=== PATIENT | male | born 1980 | race Two or more races ===

== ENCOUNTER 2023-01-14 20:35 | Emergency (ER) | payer BC, OTHER ==
[~2023-01-14] VITALS: Ht 185.4 cm; Wt 81.6 kg
[2023-01-14] MEDS ORDERED: KETO10TA2 PO (21:05)
[2023-01-14] MEDS ORDERED: AMOX-430 PO (21:05)
[2023-01-14] MEDS ORDERED: OXYC-128 PO (21:05)
[2023-01-14] MEDS ORDERED: MORPHINE SULFATE INJ 4 MG/ML DISP.SYRIN ONE (21:28)
[2023-01-14] MEDS ORDERED: KETOROLAC TROMETHAMINE INJ 30 MG/ML VIAL ONE (21:28)
[2023-01-14] MEDS ORDERED: HYDR-4279 PO (21:28)
[2023-01-14] MEDS ORDERED: MORPHINE SULFATE INJ 2 MG/ML DISP.SYRIN ONE (21:28)
[2023-01-14] MEDS ORDERED: AMOX/CLAVULANATE 875 MG TABLET ONE (21:28)
[2023-01-14] MEDS ORDERED: KETOROLAC TROMETHAMINE INJ 60 MG/2 ML VIAL IM ONE (21:30)
[2023-01-14] MEDS ORDERED: MORPHINE SULFATE INJ 2 MG/ML DISP.SYRIN IM ONE (21:30)
[2023-01-14] MEDS ORDERED: AMOX/CLAVULANATE 875 MG TABLET PO ONE (21:30)
[2023-01-14 23:30] VITALS: BP 151/95
[2023-01-15] MEDS ORDERED: OXYC-128 PO (13:50)
[2023-01-15] MEDS ORDERED: AMOX-430 PO (13:50)
== END 2023-01-14 23:30 | disposition home or self-care (01) ==
LOC: ER 20:38
DX: L03.116 Cellulitis of left lower limb (principal)
CPT/HCPCS: 99284; 96372 ×2; J2270 ×2; J1885

== ENCOUNTER 2023-01-15 10:25 | Emergency (ER) | payer BC ==
[~2023-01-15] VITALS: Ht 185.4 cm; Wt 82.6 kg
[~2023-01-15 10:25] MED LIST: AMOX-430 PO; HYDR-4279 PO; KETO10TA2 PO
[2023-01-15] MEDS ORDERED: AMOX/CLAVULANATE 875 MG TABLET ONE (11:48)
[2023-01-15] MEDS: AMOX/CLAVULANATE 875 MG TABLET PO ONE (12:10)
[2023-01-15] MEDS ORDERED: OXYC-128 PO (13:50)
[2023-01-15] MEDS ORDERED: AMOX-430 PO (13:50)
[2023-01-15 14:18] LABS: BASOPHILS % (AUTO) 0.2 % (0.0-2.0); EOSINOPHILS % (AUTO) 3.9 % (0.0-6.0); HEMATOCRIT 37 % (39-51); HEMOGLOBIN 11.7 g/dL (13.5-17.5); LYMPHOCYTES # (AUTO) 1.4 K/uL (0.8-4.8); LYMPHOCYTES % (AUTO) 11.4 % (20.0-44.0); MEAN CORPUSCULAR HGB CONC 32 g/dl (31.0-36.0); MEAN CORPUSCULAR VOLUME 92 fL (80-96); MONOCYTES # (AUTO) 1.2 K/uL (0.1-1.30); MONOCYTES % (AUTO) 10.2 % (2.0-12.0); NEUTROPHILS # (AUTO) 8.9 K/uL (1.8-8.9); NEUTROPHILS % (AUTO) 74.3 % (43.0-81.0); PLATELET COUNT (AUTO) 325 K/uL (150-450); RED BLOOD CELL COUNT(AUTO) 3.98 MIL/uL (4.5-6.0)
[2023-01-15 14:34] LABS: ALANINE AMINOTRANSFERASE 205 U/L (12-78); ALBUMIN 2.6 g/dL (3.4-5.0); ALCOHOL, BLOOD < 3 mg/dL (0-10); ALKALINE PHOSPHATASE 73 U/L (46-116); ASPARTATE AMINOTRANSFERASE 137 U/L (15-37); BILIRUBIN,DIRECT 0.1 mg/dL (0.0-0.2); BILIRUBIN,TOTAL 0.6 mg/dL (0.2-1.0); CARBON DIOXIDE 32 mmol/L (21-32); CHLORIDE 102 mmol/L (98-107); CREATININE 5.1 mg/dL (0.6-1.3); GLUCOSE 100 mg/dL (74-106); POTASSIUM 3.6 mmol/L (3.5-5.1); SODIUM SERUM 143 mmol/L (136-145); TOTAL PROTEIN, SERUM 6.1 g/dL (6.4-8.2)
[2023-01-15 14:40] LABS: UREA NITROGEN, BLOOD 81 mg/dL (7-18)
[2023-01-15 14:42] LABS: BILIRUBIN,URINE NEGATIVE (NEGATIVE); COLOR,URINE YELLOW (YELLOW); LEUKOCYTE ESTERASE ,URINE NEGATIVE (NEGATIVE); NITRITE, URINE NEGATIVE (NEGATIVE); PROTEIN,URINE TRACE mg/dl (NEGATIVE); UGLUCOSE NEGATIVE (NEGATIVE); UROBILINOGEN,URINE 0.2 EU/dL (0.2)
[2023-01-15 17:01] VITALS: BP 17/78
[2023-01-15 17:03] LABS: BACTERIA,URINE RARE /HPF (None Seen); MUCUS,URINE Few /LPF (None Seen); RBC,URINE 51-80 /HPF (0-2); WBC,URINE 0-2 /HPF (0-3)
== END 2023-01-15 17:01 ==
LOC: ER 10:31
DX: S90.32XA Contusion of left foot, initial encounter (principal); S71.032 Puncture wound without foreign body, left hip; R45.851 Suicidal ideations; Z20.822 Contact with and (suspected) exposure to COVID-19; X95.9XXA Assault by unspecified firearm discharge, initial encounter; Y93.89 Activity, other specified; Y92.89 Other specified places as the place of occurrence of the external cause; Y99.8 Other external cause status
CPT/HCPCS: 36415; 73502; 73630-TC; 80048-TC; 80076-TC; 81001; 85025-TC; C9803; G0480

== ENCOUNTER 2023-01-18 15:54 | Inpatient (IN) | payer BC ==
[~2023-01-18] VITALS: Ht 182.9 cm; Wt 93.0 kg
[~2023-01-18 15:54] MED LIST changes: +OXYC-128 PO
--- NOTE | 2023-01-18 16:02 | NUR ---
BIB RA C/O LEFT ANKLE LEG PAIN/SWELLING, ON AUGMENTIN
[2023-01-18] MEDS ORDERED: IV NS 0.9% 1,000 ML BAG IV ONE (16:30)
[2023-01-18] MEDS ORDERED: KETOROLAC TROMETHAMINE INJ 30 MG/ML VIAL IV ONE (16:30)
[2023-01-18] MEDS ORDERED: LORAZEPAM 1 MG TABLET PO ONE (16:30)
[2023-01-18] MEDS ORDERED: KETOROLAC TROMETHAMINE 15 MG/ML VIAL ONE (16:32)
[2023-01-18] MEDS ORDERED: LORAZEPAM 1 MG TABLET ONE (16:33)
--- NOTE | 2023-01-18 16:47 | NUR ---
BLOOD SAMPLE TAKEN SENT TO LAB
--- NOTE | 2023-01-18 16:47 | NUR ---
IV LINE 20 G RIGHT AC
--- NOTE | 2023-01-18 17:10 | NUR ---
US TECH AT THE BEDSIDE
[2023-01-18 17:45] LABS: BASOPHILS # (AUTO) 0.1 K/uL (0.0-0.2); BASOPHILS % (AUTO) 0.4 % (0.0-2.0); EOSINOPHILS % (AUTO) 3.3 % (0.0-6.0); HEMATOCRIT 33 % (39-51); HEMOGLOBIN 10.7 g/dL (13.5-17.5); LYMPHOCYTES # (AUTO) 1.5 K/uL (0.8-4.8); LYMPHOCYTES % (AUTO) 12.2 % (20.0-44.0); MEAN CORPUSCULAR HGB CONC 32 g/dl (31.0-36.0); MEAN CORPUSCULAR VOLUME 93 fL (80-96); MONOCYTES # (AUTO) 1.1 K/uL (0.1-1.30); MONOCYTES % (AUTO) 8.5 % (2.0-12.0); NEUTROPHILS # (AUTO) 9.5 K/uL (1.8-8.9); NEUTROPHILS % (AUTO) 75.6 % (43.0-81.0); PLATELET COUNT (AUTO) 359 K/uL (150-450); RED BLOOD CELL COUNT(AUTO) 3.57 MIL/uL (4.5-6.0); WHITE BLOOD COUNT (AUTO) 12.6 K/uL (4.3-11.0)
[2023-01-18 18:27] LABS: CALCIUM, SERUM 8.4 mg/dL (8.5-10.1); CREATININE 2.8 mg/dL (0.6-1.3); POTASSIUM 3.3 mmol/L (3.5-5.1)
[2023-01-18 18:40] LABS: ALBUMIN 2.9 g/dL (3.4-5.0); BILIRUBIN,DIRECT 0.1 mg/dL (0.0-0.2); BILIRUBIN,TOTAL 0.5 mg/dL (0.2-1.0); TOTAL PROTEIN, SERUM 6.9 g/dL (6.4-8.2)
[2023-01-18 19:08] LABS: CREATINE KINASE, TOTAL 955 U/L (39-308)
[2023-01-18] MEDS ORDERED: POTASSIUM CHLORIDE 20 MEQ TAB.PRT.SR PO ONE ×2 (20:00→20:45)
--- NOTE | 2023-01-18 20:43 | NUR ---
REPROT GIVEN TO MAHI ON THIRD FLOOR
[2023-01-18 21:10] VITALS: BP 142/83
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
[2023-01-18] MEDS ORDERED: Z GUARD REMEDY 4 OZ OINT TP PRN (22:00)
[2023-01-18] MEDS ORDERED: MAGNESIUM HYDROXIDE 30 ML UDC PO PRN (22:00)
[2023-01-18] MEDS ORDERED: MAG HYDROX/AL HYDROX/SIMETH 30 ML UDC PO PRN (22:00)
[2023-01-18] MEDS ORDERED: ONDANSETRON HCL/PF 4 MG/2 ML VIAL IVP PRN (22:00)
[2023-01-18] MEDS ORDERED: IV NS 0.9% 1,000 ML IV PRN (22:00)
[2023-01-18] MEDS ORDERED: ACETAMINOPHEN 325 MG TABLET PO PRN (22:00)
[2023-01-18] MEDS ORDERED: VANCOMYCIN 1.75 GM in IV D5W 500 ML IV ONE (22:30)
[2023-01-18] MEDS: ZOLPIDEM TARTRATE 5 MG TABLET PO PRN (23:17)
[2023-01-18 23:18] VITALS: BP 142/83
--- NOTE | 2023-01-18 23:18 | NUR ---
RN NOTE PT REQUESTED SLEEPING PILL. ADMINISTERED AMBIEN 10 MG ORDERED FOR INSOMNIA. MADE COMFORTABLE IN BED. ALL NEEDS MET AT THIS TIME.
[2023-01-18] MEDS ORDERED: VANCOMYCIN 1 GM /D5W 250 ML PB IV ONE (23:21)
[2023-01-19] MEDS: MORPHINE SULFATE INJ 2 MG/ML DISP.SYRIN IV PRN ×6 (00:55→22:31)
--- NOTE | 2023-01-19 00:56 | NUR ---
RN NOTE PT COMPLAINED OF PAIN 10/10 OF LEFT FOOT. ADMINISTERED MORPHINE 4 MG FOR SEVERE PAIN ORDERED. ALL NEEDS MET AT THIS TIME.
--- NOTE | 2023-01-19 05:03 | NUR ---
RN NOTE PT COMPLAINED OF PAIN 10/10 OF LEFT FOOT. ADMINISTERED MORPHINE 4 MG FOR SEVERE PAIN ORDERED. ALL NEEDS MET AT THIS TIME.
[2023-01-19 05:50] LABS: BASOPHILS # (AUTO) 0.1 K/uL (0.0-0.2); BASOPHILS % (AUTO) 0.6 % (0.0-2.0); EOSINOPHILS % (AUTO) 3.5 % (0.0-6.0); HEMATOCRIT 29 % (39-51); HEMOGLOBIN 9.5 g/dL (13.5-17.5); LYMPHOCYTES # (AUTO) 1.5 K/uL (0.8-4.8); LYMPHOCYTES % (AUTO) 10.5 % (20.0-44.0); MEAN CORPUSCULAR HGB CONC 33 g/dl (31.0-36.0); MEAN CORPUSCULAR VOLUME 94 fL (80-96); MONOCYTES # (AUTO) 1.1 K/uL (0.1-1.30); MONOCYTES % (AUTO) 7.3 % (2.0-12.0); NEUTROPHILS # (AUTO) 11.2 K/uL (1.8-8.9); NEUTROPHILS % (AUTO) 78.1 % (43.0-81.0); PLATELET COUNT (AUTO) 354 K/uL (150-450); RED BLOOD CELL COUNT(AUTO) 3.14 MIL/uL (4.5-6.0); WHITE BLOOD COUNT (AUTO) 14.3 K/uL (4.3-11.0)
[2023-01-19 06:10] LABS: CALCIUM, SERUM 7.9 mg/dL (8.5-10.1); CREATININE 2.4 mg/dL (0.6-1.3); MAGNESIUM 1.7 mg/dL (1.8-2.4); PHOSPHORUS 4.2 mg/dL (2.5-4.9); POTASSIUM 3.6 mmol/L (3.5-5.1)
--- NOTE | 2023-01-19 06:43 | NUR ---
MS RN CLOSING NOTE PT AWAKE IN BED. A/O X4 AND ABLE TO MAKE NEEDS KNOWN. PT STABLE ON ROOM AIR. NO SOB OR S/S OF RESPIRATORY DISTRESS. BREATHING EVEN AND UNLABORED. IV ACCESS RAC 20G, INTACT AND PATENT, RUNNING NS @ 100 ML/HR. NO COMPLAINTS OF PAIN OR DISCOMFORT AT THIS TIME. MEDICATIONS TAKEN TO PHARMACY. ALL MEDS GIVEN ORDERED. SAFETY PRECAUTIONS IN PLACE AT ALL TIMES. BED IN LOWEST LOCKED POSITION, HOB ELEVATED, SIDE RAILS UP X2, AND CALL LIGHT AND TABLE WITHIN REACH. ALL NEEDS MET AT THIS TIME AND WILL ENDORSE TO ONCOMING NURSE FOR CHEY.
--- NOTE | 2023-01-19 07:27 | NUR ---
RN MS NOTES PT IN BED, AWAKE, ALERT AND ORIENTED, WITH COMPLAINT OF LLE PAIN, CALL LIGHT WITHIN REACH, NEEDS ATTENDED.
[2023-01-19 08:00] VITALS: BP 139/74
[2023-01-19] MEDS: GABAPENTIN 400 MG CAPSULE PO SCH ×3 (08:25→16:54)
[2023-01-19] MEDS: PANTOPRAZOLE 40 MG TABLET.DR PO SCH (08:25)
[2023-01-19] MEDS: FLUOXETINE HCL 20 MG CAPSULE PO SCH (08:27)
[2023-01-19] MEDS ORDERED: GABA800T11 PO (08:37)
[2023-01-19] MEDS ORDERED: FLUO40CA8 PO (08:37)
--- NOTE | 2023-01-19 08:43 | NUR ---
WOUND CARE CONSULT: PT PRESENTS WITH LEFT THIGH AND LEFT LOWER LEG DRY WOUND/LESIONS WITH EDEMA AND TENDERNESS, PRESENT ON ADMISSION. DR LARRY AND DR GONZALEZ CALLED FOR SURGICAL AND DPM CONSULTS. DISCUSSED SKIN PROTECTION WITH NURSING STAFF. MD IN AGREEMENT WITH PLAN OF CARE.
--- NOTE | 2023-01-19 10:34 | NUR ---
RN MS NOTES PAIN MEDS GIVEN FOR PAIN MANAGEMENT, SEEN AND EXAMINED BY DR. GONZALEZ, PLAN OF CARE DISCUSSED WITH PT, VERBALIZED UNDERSTANDING, IV FLUIDS INFUSING WELL.
[2023-01-19 11:55] LABS: THYROID STIMULATING HORMONE 0.801 uIU/mL (0.358-3.74)
[2023-01-19] MEDS ORDERED: MAGNESIUM OXIDE 400 MG TABLET PO ONE (12:00)
[2023-01-19] MEDS: IV NS 0.9% 1,000 ML IV SCH ×2 (13:51→22:04)
[2023-01-19] MEDS ORDERED: PRAZ2CAP2 PO (15:00)
[2023-01-19] MEDS ORDERED: LORA-259 PO (15:00)
[2023-01-19] MEDS ORDERED: BUPR8TAB4 SL (15:00)
[2023-01-19 15:20] LABS: BILIRUBIN,URINE NEGATIVE (NEGATIVE); COLOR,URINE YELLOW (YELLOW); LEUKOCYTE ESTERASE ,URINE NEGATIVE (NEGATIVE); NITRITE, URINE NEGATIVE (NEGATIVE); PROTEIN,URINE NEGATIVE (NEGATIVE); UGLUCOSE NEGATIVE (NEGATIVE); UROBILINOGEN,URINE 0.2 EU/dL (0.2)
[2023-01-19 15:45] LABS: BACTERIA,URINE None seen /HPF (None Seen); WBC,URINE 0-2 /HPF (0-3)
[2023-01-19 16:00] VITALS: BP 143/82
[2023-01-19 17:49] LABS: EOSINOPHIL,URINE None Seen
--- NOTE | 2023-01-19 19:46 | NUR ---
MS DAVONTE INITIAL NOTES RECEIVED REPORT FROM AM NURSE AND SEEN PATIENT IN BED ON SITTING POSITION ON ROOM AIR NOT IN ANY DISTRESS NOTED, WITH IVF OF NS AT 125 ML/HR INFUSING ON HIS RIGHT AC PATENT AND INTACT. DENIES ANY PAIN OR ANY DISCOMFORT AT THIS TIME, AND PER PATIENT PAIN SUBSIDE AFTER PAIN MEDICATION GIVEN . URINE OUTPUT CLEAR YELLOW NOTED. KEPT HIM COMFORTABLE AT ALL TIMES. WILL CONTINUE MONITORING.
[2023-01-19 20:00] VITALS: BP 141/67
[2023-01-19] MEDS ORDERED: VANCOMYCIN 1.25 GM in IV D5W 250 ML IV SCH (23:00)
[2023-01-20] MEDS: MORPHINE SULFATE INJ 2 MG/ML DISP.SYRIN IV PRN ×4 (03:35→17:46)
--- NOTE | 2023-01-20 03:35 | NUR ---
RN NOTES- MORPHINE GIVEN @ 0230 ADMINISTERED MORPHINE IV 4MG PRN AT @ 0230. MEDICATION WAS SCANNED BUT WAS NOT ABLE TO SAVE IT. PRODUCT MANAGENT INTERN INFORMED.
[2023-01-20 05:50] LABS: BASOPHILS # (AUTO) 0.1 K/uL (0.0-0.2); BASOPHILS % (AUTO) 0.5 % (0.0-2.0); EOSINOPHILS % (AUTO) 2.9 % (0.0-6.0); HEMATOCRIT 27 % (39-51); HEMOGLOBIN 9.1 g/dL (13.5-17.5); LYMPHOCYTES # (AUTO) 1.3 K/uL (0.8-4.8); LYMPHOCYTES % (AUTO) 12.3 % (20.0-44.0); MEAN CORPUSCULAR HGB CONC 33 g/dl (31.0-36.0); MEAN CORPUSCULAR VOLUME 92 fL (80-96); MONOCYTES # (AUTO) 0.9 K/uL (0.1-1.30); MONOCYTES % (AUTO) 8.6 % (2.0-12.0); NEUTROPHILS # (AUTO) 8.3 K/uL (1.8-8.9); NEUTROPHILS % (AUTO) 75.7 % (43.0-81.0); PLATELET COUNT (AUTO) 372 K/uL (150-450); RED BLOOD CELL COUNT(AUTO) 2.96 MIL/uL (4.5-6.0); WHITE BLOOD COUNT (AUTO) 10.9 K/uL (4.3-11.0)
[2023-01-20 06:12] LABS: CALCIUM, SERUM 7.6 mg/dL (8.5-10.1); CREATININE 1.8 mg/dL (0.6-1.3); MAGNESIUM 1.6 mg/dL (1.8-2.4); PHOSPHORUS 3.5 mg/dL (2.5-4.9); POTASSIUM 3.5 mmol/L (3.5-5.1)
[2023-01-20] MEDS: HYDROCODONE/APAP 5/325MG TABLET PO PRN (06:23)
--- NOTE | 2023-01-20 07:30 | NUR ---
MS RN OPENING NOTES RECEIVED PATIENT IN BED ON SITTING POSITION,. ALERT/ORIENTED X4, ON ROOM AIR NOT IN ANY DISTRESS NOTED, WITH IVF OF NS AT 125 ML/HR INFUSING ON HIS RIGHT AC PATENT AND INTACT. COMPLAINING OF PAIN 03/22, NORCO WAS GIVEN AT 0623 BY PREVIOUS SHIFT. FALL AND SAFETY PRECAUTIONS MAINTAINED. BED LOCKED IN LOWEST POSITION. KEPT HIM COMFORTABLE AT ALL TIMES. CALL LIGHT WITHIN REACH. WILL CONTINUE MONITORING.
--- NOTE | 2023-01-20 07:48 | NUR ---
MS CARE TEAM COORDINATOR SCHEDULER CLOSING NOTES PT RESTING AT THIS TIME. ALL DUE MEDS GIVEN AND ALL NEEDS MET. KEPT HIM WARM AND COMFORTABLE AT ALL TIMES. WILL ENDORSE TO AM NURSE.
[2023-01-20 08:00] VITALS: BP 145/83
[2023-01-20] MEDS: PANTOPRAZOLE 40 MG TABLET.DR PO SCH (08:15)
[2023-01-20] MEDS: GABAPENTIN 400 MG CAPSULE PO SCH ×3 (08:16→17:46)
[2023-01-20] MEDS: FLUOXETINE HCL 20 MG CAPSULE PO SCH (08:16)
[2023-01-20] MEDS: PROSOURCE / PROSTAT (PYXIS) 30 ML UDC PO SCH (08:18)
[2023-01-20] MEDS ORDERED: MAGNESIUM OXIDE 400 MG TABLET PO ONE (08:30)
[2023-01-20] MEDS: IV NS 0.9% 1,000 ML IV SCH ×2 (09:48→19:42)
[2023-01-20] MEDS: ARIPIPRAZOLE 5 MG TABLET PO SCH (09:48)
[2023-01-20] MEDS: VANCOMYCIN 0.75 GM in IV D5W 250 ML IV SCH ×2 (12:56→23:14)
[2023-01-20 16:00] VITALS: BP 136/70
--- NOTE | 2023-01-20 18:32 | NUR ---
MS RN CLOSING NOTES PATIENT IN BED ON SITTING POSITION. ALERT/ORIENTED X4, ON ROOM AIR NOT IN ANY DISTRESS NOTED, WITH IVF OF NS AT 125 ML/HR INFUSING ON HIS RIGHT AC, PATENT AND INTACT. PAIN MGT ORDERED. PAIN AT 6/10 ON LEFT LEG. FALL AND SAFETY PRECAUTIONS MAINTAINED. BED LOCKED IN LOWEST POSITION. KEPT HIM COMFORTABLE AT ALL TIMES. CALL LIGHT WITHIN REACH. WILL ENDORSE TO NEXT SHIFT.
--- NOTE | 2023-01-20 19:30 | NUR ---
MS RN OPENING NOTE RECEIVED PATIENT SITTING IN BED, AWAKE, ALERT AND ORIENTED X4. ABLE TO MAKE NEEDS KNOWN. AFEBRILE AND NOT IN ANY FORM OF ACUTE DISTRESS. BREATHING EVEN AND NON LABORED. WITH IV ACCESS ON RAC 22G RUNNING WITH NS AT 125ML/HR. C/O MILD HEADACHE, MEDICATED WITH PRN TYLENOL ORDERED. SAFETY MEASURES IN PLACE. KEPT BED IN LOCKED AND IN LOW POSITION. SIDE RAILS UP X 2. ADVISED TO USE THE CALL LIGHT WHEN IN NEED OF ASSISTANCE.
[2023-01-20 20:00] VITALS: BP 146/71
[2023-01-20] MEDS: ZOLPIDEM TARTRATE 5 MG TABLET PO PRN (21:06)
[2023-01-21] MEDS: MORPHINE SULFATE INJ 2 MG/ML DISP.SYRIN IV PRN ×4 (01:33→17:36)
[2023-01-21 06:21] LABS: CALCIUM, SERUM 8.3 mg/dL (8.5-10.1); CREATININE 1.4 mg/dL (0.6-1.3); POTASSIUM 3.5 mmol/L (3.5-5.1)
[2023-01-21] MEDS: IV NS 0.9% 1,000 ML IV SCH ×2 (06:21→22:53)
[2023-01-21 06:22] LABS: MAGNESIUM 1.7 mg/dL (1.8-2.4)
[2023-01-21] MEDS: HYDROCODONE/APAP 5/325MG TABLET PO PRN (06:28)
--- NOTE | 2023-01-21 06:30 | NUR ---
MS RN CLOSING NOTE PATIENT IN BED, SLEEPING INTERMITTENTLY. ABLE TO MAKE NEEDS KNOWN. AFEBRILE AND NOT IN ANY FORM OF ACUTE DISTRESS. BREATHING EVEN AND NON LABORED. WITH IV ACCESS ON RAC 22G RUNNING WITH NS AT 90ML/HR. MEDICATED ORDERED. SAFETY MEASURES IN PLACE. KEPT BED IN LOCKED AND IN LOW POSITION. SIDE RAILS UP X 2. ADVISED TO USE THE CALL LIGHT WHEN IN NEED OF ASSISTANCE. ALL NURSING NEEDS ATTENDED. ENDORSED TO INCOMING SHIFT FOR CONTINUITY OF CARE.
--- NOTE | 2023-01-21 07:30 | NUR ---
MS RN OPENING NOTE RECEIVED PATIENT RESTING IN BED, SLEEPING INTERMITTENTLY. ABLE TO MAKE NEEDS KNOWN. AFEBRILE AND NOT IN ANY FORM OF ACUTE DISTRESS. PAIN LEVEL 2/10. BREATHING EVEN AND NON LABORED. WITH IV ACCESS ON RAC 22G RUNNING WITH NS AT 90ML/HR. WILL ADMINSITER ALL DUE MEDS ORDERED. SAFETY MEASURES IN PLACE. KEPT BED IN LOCKED AND IN LOW POSITION. SIDE RAILS UP X 2. ADVISED TO USE THE CALL LIGHT WHEN IN NEED OF ASSISTANCE. ALL NURSING NEEDS ATTENDED. WILL CONTINUE TO MONITOR.
[2023-01-21] MEDS: PANTOPRAZOLE 40 MG TABLET.DR PO SCH (07:56)
[2023-01-21] MEDS: ARIPIPRAZOLE 5 MG TABLET PO SCH (08:00)
[2023-01-21] MEDS: FLUOXETINE HCL 20 MG CAPSULE PO SCH (08:00)
[2023-01-21] MEDS: PROSOURCE / PROSTAT (PYXIS) 30 ML UDC PO SCH (08:00)
[2023-01-21] MEDS: GABAPENTIN 400 MG CAPSULE PO SCH ×3 (08:00→16:06)
[2023-01-21] MEDS ORDERED: MAGNESIUM OXIDE 400 MG TABLET PO ONE (08:38)
[2023-01-21 09:16] VITALS: BP 142/78
[2023-01-21] MEDS: VANCOMYCIN 0.75 GM in IV D5W 250 ML IV SCH ×2 (12:03→23:09)
[2023-01-21 18:18] VITALS: BP 162/88
--- NOTE | 2023-01-21 18:40 | NUR ---
MS RN CLOSING NOTE PATIENT RESTING IN BED, ABLE TO MAKE NEEDS KNOWN. AFEBRILE AND NOT IN ANY FORM OF ACUTE DISTRESS. PAIN LEVEL 3/10. BREATHING EVEN AND NON LABORED. WITH IV ACCESS ON RAC 22G RUNNING WITH NS AT 90ML/HR. ALL DUE MEDS GIVEN ORDERED. SAFETY MEASURES IN PLACE. KEPT BED IN LOCKED AND IN LOW POSITION. SIDE RAILS UP X 2. ADVISED TO USE THE CALL LIGHT WHEN IN NEED OF ASSISTANCE. ALL NURSING NEEDS ATTENDED. WILL ENDORSE TO NEXT SHIFT.
--- NOTE | 2023-01-21 19:30 | NUR ---
MS RN OPENING NOTE PATIENT SITTING IN BED, AWAKE, ALERT AND ORIENTED X4. ABLE TO MAKE NEEDS KNOWN. AFEBRILE AND NOT IN ANY FORM OF ACUTE DISTRESS. BREATHING EVEN AND NON LABORED. WITH IV ACCESS ON RAC 22G RUNNING WITH NS AT 90ML/HR. SAFETY MEASURES IN PLACE. KEPT BED IN LOCKED AND IN LOW POSITION. SIDE RAILS UP X 2. ADVISED TO USE THE CALL LIGHT WHEN IN NEED OF ASSISTANCE.
[2023-01-21 20:00] VITALS: BP 149/86
[2023-01-21] MEDS: ZOLPIDEM TARTRATE 5 MG TABLET PO PRN (21:18)
--- NOTE | 2023-01-21 22:00 | NUR ---
MS RN NOTE PATIENT'S IV SITE NOTED WITH REDNESS AROUND THE AREA AND PATIENT C/O MILD PAIN IN THE AREA. REMOVED OLD IV ACCESS AND REINSERTED WITH ANOTHER ONE ON R HAND 20G. TOLERATED THE PROCEDURE WELL.
[2023-01-21] MEDS: MORPHINE SULFATE INJ 4 MG/ML DISP.SYRIN IV PRN (23:16)
--- NOTE | 2023-01-21 23:27 | NUR ---
MS RN NOTE PATIENT CLAIMED THAT HE IS SEEING PEOPLE. ASKED MORE ABOUT IT AND IF THEY ARE TELLING ANYTHING BUT PATIENT SAID THAT THEY DON'T ANSWER. REORIENTED THE PATIENT AND ADVISED TO TELL THE STAFFS IF IT CONTINUOUS OR IF HE HEARS ANYTHING THAT MAY COMPROMISE THE SAFETY OF THE PATIENT AND OTHERS.
[2023-01-22] MEDS: MORPHINE SULFATE INJ 4 MG/ML DISP.SYRIN IV PRN ×5 (03:30→21:42)
[2023-01-22] MEDS: IV NS 0.9% 1,000 ML IV SCH (03:56)
--- NOTE | 2023-01-22 06:30 | NUR ---
MS RN CLOSING NOTE PATIENT IN BED, SLEEPING INTERMITTENTLY. ABLE TO MAKE NEEDS KNOWN. AFEBRILE AND NOT IN ANY FORM OF ACUTE DISTRESS. BREATHING EVEN AND NON LABORED. WITH IV ACCESS ON R HAND 20G RUNNING WITH NS AT 90ML/HR. MEDICATED ORDERED. SAFETY MEASURES IN PLACE. KEPT BED IN LOCKED AND IN LOW POSITION. SIDE RAILS UP X 2. ADVISED TO USE THE CALL LIGHT WHEN IN NEED OF ASSISTANCE. ALL NURSING NEEDS ATTENDED. ENDORSED TO INCOMING SHIFT FOR CONTINUITY OF CARE.
--- NOTE | 2023-01-22 07:15 | NUR ---
MS RN OPENING NOTES RECEIVED PATIENT RESTING IN BED,. ALERT/ORIENTED X4, ON ROOM AIR NOT IN ANY DISTRESS NOTED, WITH IV ACCESS ON RIGHT HAND WITH IVF OF NS AT 90 ML/HR INFUSING WELL, PATENT AND INTACT. COMPLAINING OF PAIN 8/10 ON HIS LEFT LOWER EXTREMITIES. PATIENT GIVEN MORPHINE BY PM SHIFT AROUND 0330. FALL AND SAFETY PRECAUTIONS MAINTAINED. BED LOCKED IN LOWEST POSITION. KEPT HIM COMFORTABLE AT ALL TIMES. CALL LIGHT WITHIN REACH. WILL CONTINUE WITH THE PLAN OF CARE.
[2023-01-22] MEDS: PANTOPRAZOLE 40 MG TABLET.DR PO SCH (07:42)
[2023-01-22 08:26] VITALS: BP 158/79
[2023-01-22] MEDS: PROSOURCE / PROSTAT (PYXIS) 30 ML UDC PO SCH (08:32)
[2023-01-22] MEDS: FLUOXETINE HCL 20 MG CAPSULE PO SCH (08:33)
[2023-01-22] MEDS: ARIPIPRAZOLE 5 MG TABLET PO SCH (08:33)
[2023-01-22] MEDS: GABAPENTIN 400 MG CAPSULE PO SCH ×3 (08:33→16:54)
--- NOTE | 2023-01-22 09:00 | NUR ---
MS RN NOTES SEEN AND EXAMINED BY HOSPITALIST ELLE WITH NEW ORDERS RECEIVED FOR ARTERIAL DUPLEX LEFT LOWER EXTREMITIES AND ALEXX AM LABS BMP,CMP, MAGNESIUM AND PHOSPHORUS. ORDERS CARRIED AND NOTED.
[2023-01-22 09:01] LABS: CALCIUM, SERUM 8.2 mg/dL (8.5-10.1); CREATININE 1.2 mg/dL (0.6-1.3); POTASSIUM 3.7 mmol/L (3.5-5.1)
--- NOTE | 2023-01-22 09:50 | NUR ---
MS RN NOTE SEEN AND EXAMINED BY HOSPITALIST EZEKIEL WITH ORDER RECEIVED FOR STAT MRI HIP JOINT LEFT W/O CONTRAST. SECURED CONSENT AND CALLED MRI C/O PLACIDO SCHEDULE AT 1200. PATIENT MADE AWARE.
[2023-01-22] MEDS: VANCOMYCIN 0.75 GM in IV D5W 250 ML IV SCH ×2 (13:03→23:17)
[2023-01-22 15:58] VITALS: BP 150/83
--- NOTE | 2023-01-22 18:30 | NUR ---
MS RN NOTE DR. ALMEIDA NOTIFIED OF LATEST MRI RESULT
--- NOTE | 2023-01-22 18:48 | NUR ---
MS RN CLOSING NOTES PATIENT RESTING IN BED,. ALERT/ORIENTED X4, ON ROOM AIR NOT IN ANY DISTRESS NOTED, WITH IV ACCESS ON RIGHT HAND ON SALINE LOCK, PATENT AND INTACT. PRN PAIN MEDICINE WAS GIVEN ORDERED AND RE-EVALUATE FOR EFFECTIVENESS. FALL AND SAFETY PRECAUTIONS MAINTAINED. BED LOCKED IN LOWEST POSITION. KEPT HIM COMFORTABLE AT ALL TIMES. CALL LIGHT WITHIN REACH. WILL ENDORSE ACCORDINGLY.
--- NOTE | 2023-01-22 19:30 | NUR ---
MS RN OPENING NOTE RECEIVED PT AWAKE IN BED. A/O X4 AND ABLE TO MAKE NEEDS KNOWN. PT STABLE ON ROOM AIR. NO SOB OR S/S OF RESPIRATORY DISTRESS. BREATHING EVEN AND UNLABORED. IV ACCESS R HAND 20G, INTACT AND PATENT. SAFETY PRECAUTIONS IN PLACE. BED IN LOWEST LOCKED POSITION, HOB ELEVATED, SIDE RAILS UP X2, AND CALL LIGHT AND TABLE WITHIN REACH. ALL NEEDS MET AT THIS TIME.
[2023-01-22 20:00] VITALS: BP 159/93
--- NOTE | 2023-01-22 21:42 | NUR ---
RN NOTE PT COMPLAINED OF L LEG AND FOOT PAIN 04/22. ADMINISTERED MORPHINE 4 MG FOR SEVERE PAIN ORDERED. MADE COMFORTABLE IN BED. ALL NEEDS MET AT THIS TIME.
[2023-01-22] MEDS: CLONIDINE HCL 0.1 MG TABLET PO PRN (22:48)
--- NOTE | 2023-01-22 22:48 | NUR ---
RN NOTE SBP NOTED >150 @ 2000, BUT PT STATED HE IS JUST IN PAIN AND WANTED MORPHINE WHEN IT IS DUE. ADMINISTERED MORPHINE AT 2142. RECHECKED BP @ 2242 WITH BP 154/94 AND HR 73 BPM. EDUCATED PT ON THE IMPORTANCE OF BP MANAGEMENT. PT VERBALIZED UNDERSTANDING AND AGREED TO TAKE PRN BP MED. ADMINISTERED CLONIDINE 0.1 MG FOR SBP>150 ORDERED. ALL NEEDS MET AT THIS TIME.
[2023-01-23] MEDS: MORPHINE SULFATE INJ 4 MG/ML DISP.SYRIN IV PRN ×5 (02:49→20:22)
--- NOTE | 2023-01-23 02:49 | NUR ---
RN NOTE PT COMPLAINED OF L LEG AND FOOT PAIN 05/22. ADMINISTERED MORPHINE 4 MG FOR SEVERE PAIN ORDERED. MADE COMFORTABLE IN BED. ALL NEEDS MET AT THIS TIME.
--- NOTE | 2023-01-23 06:51 | NUR ---
MS RN CLOSING NOTE PT AWAKE IN BED. A/O X4 AND ABLE TO MAKE NEEDS KNOWN. PT STABLE ON ROOM AIR. NO SOB OR S/S OF RESPIRATORY DISTRESS. BREATHING EVEN AND UNLABORED. IV ACCESS R HAND 20G, INTACT AND PATENT. ALL DUE MEDS GIVEN ORDERED. KEPT CLEAN AND DRY. SAFETY PRECAUTIONS IN PLACE AT ALL TIMES. BED IN LOWEST LOCKED POSITION, HOB ELEVATED, SIDE RAILS UP X2, AND CALL LIGHT AND TABLE WITHIN REACH. ALL NEEDS MET AT THIS TIME AND WILL ENDORSE TO ONCOMING NURSE FOR CHEY.
[2023-01-23 06:56] LABS: BASOPHILS # (AUTO) 0.1 K/uL (0.0-0.2); BASOPHILS % (AUTO) 0.8 % (0.0-2.0); HEMATOCRIT 28 % (39-51); HEMOGLOBIN 9.1 g/dL (13.5-17.5); LYMPHOCYTES # (AUTO) 1.4 K/uL (0.8-4.8); LYMPHOCYTES % (AUTO) 14.7 % (20.0-44.0); MEAN CORPUSCULAR HGB CONC 32 g/dl (31.0-36.0); MEAN CORPUSCULAR VOLUME 94 fL (80-96); MONOCYTES # (AUTO) 0.9 K/uL (0.1-1.30); MONOCYTES % (AUTO) 9.7 % (2.0-12.0); NEUTROPHILS # (AUTO) 6.8 K/uL (1.8-8.9); NEUTROPHILS % (AUTO) 71.8 % (43.0-81.0); PLATELET COUNT (AUTO) 413 K/uL (150-450); RED BLOOD CELL COUNT(AUTO) 3.01 MIL/uL (4.5-6.0); WHITE BLOOD COUNT (AUTO) 9.5 K/uL (4.3-11.0)
[2023-01-23 07:00] VITALS: BP 151/94
[2023-01-23 07:05] LABS: CALCIUM, SERUM 8.3 mg/dL (8.5-10.1); CREATININE 1.3 mg/dL (0.6-1.3); MAGNESIUM 1.6 mg/dL (1.8-2.4); PHOSPHORUS 2.9 mg/dL (2.5-4.9); POTASSIUM 3.9 mmol/L (3.5-5.1)
--- NOTE | 2023-01-23 07:32 | NUR ---
OPENING NOTE PATIENT RECEIVED A/O X4, ON ROOM AIR WITH NO S/S OF SOB OR DISTRESS. PATIENT EXPRESSED PAIN LEVEL 6, WAS PREVIOUS WAS AT A 10. PAIN SITE LEFT LEG: LEFT LEG SWELLING FROM UPPER HIP AREA TO THE LOWER LEFT FOOT, L HIP AREA REDNESS AND TENDERNESS TO TOUCH, EDEMA NON PITTING, CAPILLARY REFILL <3. IV ACCESS ON R HAND 20G, INTACT AND CLEAN. FALL AND SAFETY PRECAUTION MAINTAINED: BED LOCKED AND AT THE LOWEST POSITION, SRx2, CALL LIGHT WITHIN REACH.
[2023-01-23] MEDS: FLUOXETINE HCL 20 MG CAPSULE PO SCH (08:49)
[2023-01-23] MEDS: PANTOPRAZOLE 40 MG TABLET.DR PO SCH (08:49)
[2023-01-23] MEDS: PROSOURCE / PROSTAT (PYXIS) 30 ML UDC PO SCH ×2 (08:50→08:56)
[2023-01-23] MEDS: ARIPIPRAZOLE 5 MG TABLET PO SCH (08:50)
[2023-01-23] MEDS: GABAPENTIN 400 MG CAPSULE PO SCH ×3 (08:50→16:15)
[2023-01-23] MEDS ORDERED: MAGNESIUM OXIDE 400 MG TABLET PO ONE (10:00)
[2023-01-23] MEDS: VANCOMYCIN 0.75 GM in IV D5W 250 ML IV SCH ×2 (11:44→23:13)
--- NOTE | 2023-01-23 15:53 | NUR ---
ETCHER PRINTED [employer] BOARDS NOTE: PT BELONGINGS PATIENT REQUESTED AN UPDATE ON HIS CELL PHONE STATUS. CLAIMS HE CAME IN WITH A CELL PHONE DURING ADMISSION 01/18. BUT WHEN TRANSFERRED TO [facility], HE NO LONGER HAD IT. BELONGING LIST DIDN'T SHOW CELL PHONE. PATIENT CLAIMS CELL PHONE WAS GIVEN TO ER STAFF. CALLED ER FOR ADDITIONAL INFORMATION SPOKE TO COTY. A FOLLOW UP IS NEEDED, NO ADDITIONAL INFORMATION AVAILABLE AT THIS TIME.
--- NOTE | 2023-01-23 16:15 | NUR ---
RN NOTES PT C/O LEFT LEG AND FOOT PAIN, 8/10 SCALE. ADMINISTERED PRN MORPHINE 4MG/ML IVP AT 1610. WILL MONITOR AND REASSESS PT.
[2023-01-23 16:16] VITALS: BP 156/91
--- NOTE | 2023-01-23 19:19 | NUR ---
CLOSING NOTE PATIENT AWAKE A/O X4, ON ROOM AIR WITH NO S/S OF SOB OR DISTRESS. MEDICATION ADMINISTERED ORDERED / PER PT STATUS. PAIN MANAGEMENT MAINTAINED. IV ACCESS ON R HAND 20G, INTACT, FLUSHING WELL. FALL AND SAFETY PRECAUTION MAINTAINED: BED LOCKED AND AT THE LOWEST POSITION, SRx2, CALL LIGHT WITHIN REACH.
[2023-01-23] MEDS: CLONIDINE HCL 0.1 MG TABLET PO PRN (20:25)
--- NOTE | 2023-01-23 20:26 | NUR ---
RN NOTE BP 151/94. ADMINISTERED CLONIDINE 0.1 MG FOR SBP>150. MADE COMFORTABLE IN BED. ALL NEEDS MET AT THIS TIME.
[2023-01-23 20:37] VITALS: BP 151/94
[2023-01-24] MEDS: MORPHINE SULFATE INJ 4 MG/ML DISP.SYRIN IV PRN ×5 (00:40→23:51)
[2023-01-24 05:52] LABS: BASOPHILS # (AUTO) 0.1 K/uL (0.0-0.2); EOSINOPHILS % (AUTO) 3.4 % (0.0-6.0); HEMATOCRIT 27 % (39-51); HEMOGLOBIN 9.2 g/dL (13.5-17.5); LYMPHOCYTES # (AUTO) 1.4 K/uL (0.8-4.8); LYMPHOCYTES % (AUTO) 16.5 % (20.0-44.0); MEAN CORPUSCULAR HGB CONC 34 g/dl (31.0-36.0); MEAN CORPUSCULAR VOLUME 93 fL (80-96); MONOCYTES # (AUTO) 0.9 K/uL (0.1-1.30); MONOCYTES % (AUTO) 9.9 % (2.0-12.0); NEUTROPHILS % (AUTO) 69.2 % (43.0-81.0); PLATELET COUNT (AUTO) 392 K/uL (150-450); RED BLOOD CELL COUNT(AUTO) 2.96 MIL/uL (4.5-6.0); WHITE BLOOD COUNT (AUTO) 8.6 K/uL (4.3-11.0)
[2023-01-24 06:15] LABS: ALBUMIN 2.6 g/dL (3.4-5.0); BILIRUBIN,TOTAL 0.3 mg/dL (0.2-1.0); CALCIUM, SERUM 8.4 mg/dL (8.5-10.1); CREATININE 1.2 mg/dL (0.6-1.3); MAGNESIUM 1.8 mg/dL (1.8-2.4); PHOSPHORUS 3.2 mg/dL (2.5-4.9); POTASSIUM 4.1 mmol/L (3.5-5.1); TOTAL PROTEIN, SERUM 6.5 g/dL (6.4-8.2)
--- NOTE | 2023-01-24 06:36 | NUR ---
MS RN CLOSING NOTE PT AWAKE IN BED. A/O X4 AND ABLE TO MAKE NEEDS KNOWN. PT STABLE ON ROOM AIR. NO SOB OR S/S OF RESPIRATORY DISTRESS. BREATHING EVEN AND UNLABORED. IV ACCESS LFA 20G, INTACT AND PATENT. NO COMPLAINTS OF PAIN OR DISCOMFORT AT THIS TIME. ALL DUE MEDS GIVEN ORDERED. KEPT CLEAN AND DRY. SAFETY PRECAUTIONS IN PLACE AT ALL TIMES. BED IN LOWEST LOCKED POSITION, HOB ELEVATED, SIDE RAILS UP X2, AND CALL LIGHT AND TABLE WITHIN REACH. ALL NEEDS MET AT THIS TIME AND WILL ENDORSE TO ONCOMING NURSE FOR CHEY.
--- NOTE | 2023-01-24 07:10 | NUR ---
RN OPENING NOTE-PT AWAKE IN BED. A/O X4 AND ABLE TO MAKE NEEDS KNOWN. STATED IN PAIN, NEEDS RX, PT STABLE ON ROOM AIR. IV ACCESS LFA 20G, INTACT AND PATENT. KEPT CLEAN AND DRY. SAFETY PRECAUTIONS IN PLACE AT ALL TIMES. BED IN LOWEST LOCKED POSITION, HOB ELEVATED, SIDE RAILS UP X2, AND CALL LIGHT AND TABLE WITHIN REACH.
[2023-01-24] MEDS: HYDROCODONE/APAP 5/325MG TABLET PO PRN ×4 (07:43→22:01)
[2023-01-24] MEDS: PANTOPRAZOLE 40 MG TABLET.DR PO SCH (07:52)
[2023-01-24] MEDS: FLUOXETINE HCL 20 MG CAPSULE PO SCH (08:43)
[2023-01-24] MEDS: GABAPENTIN 400 MG CAPSULE PO SCH ×3 (08:43→16:23)
[2023-01-24] MEDS: ARIPIPRAZOLE 5 MG TABLET PO SCH (08:43)
[2023-01-24] MEDS: PROSOURCE / PROSTAT (PYXIS) 30 ML UDC PO SCH ×4 (08:46→16:23)
[2023-01-24 09:11] VITALS: BP 161/93
[2023-01-24] MEDS: VANCOMYCIN 1 GM in IV D5W 250 ML IV SCH ×2 (11:49→22:07)
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
[2023-01-24 18:32] VITALS: BP 163/93
--- NOTE | 2023-01-24 18:38 | NUR ---
RN CLOSING NOTE- UNCHANGED, PT AWAKE IN BED. A/O X4 AND ABLE TO MAKE NEEDS KNOWN. PAIN MANAGED ALL DAY BY ALTERNATING MORPHINE IVP THEN NORCO 5 MG. PROBABLE DC TOMORROW. PT STABLE ON ROOM AIR. IV ACCESS LFA 20G, INTACT AND PATENT. KEPT CLEAN AND DRY. SAFETY PRECAUTIONS IN PLACE AT ALL TIMES. BED IN LOWEST LOCKED POSITION, HOB ELEVATED, SIDE RAILS UP X2, AND CALL LIGHT AND TABLE WITHIN REACH. MONITOR / ASSIST
--- NOTE | 2023-01-24 19:15 | NUR ---
RN opening notes Pt is sitting in bed comfortably watching TV. Pt is alert and orientedX4. On room air. No SOB. No S/S of distress noted. Snacks is given and provided. IV site at LFA# 20 is clean, intact and flushes well, SL. Safety precautions is maintained. bed at low position, brakes locked, side rails upX2, hob elevated, walker at the bedside, and call light is within reach. Will continue to monitor.
[2023-01-24 20:00] VITALS: BP 165/97
--- NOTE | 2023-01-24 20:00 | NUR ---
RN notes Pt is complaining of L leg and ankle, foot pain 10/10 on pain scale. administered morphine as ordered. safety precautions is maintained. Will continue to monitor.
[2023-01-24] MEDS: CLONIDINE HCL 0.1 MG TABLET PO PRN (21:08)
--- NOTE | 2023-01-24 21:10 | NUR ---
RN notes Pt's BP 165/97 HR 82. Administered clonidine as ordered for high BP. will rechecked in 30 min. will continue to monitor.
[2023-01-24 22:00] VITALS: BP 150/91
--- NOTE | 2023-01-24 22:00 | NUR ---
RN notes Pt's BP 150/91 HR 79.
--- NOTE | 2023-01-24 22:12 | NUR ---
RN notes Pt is complaining of pain on L leg. administered norco/po/as ordered. safety precaution is maintained. will continue to monitor.
--- NOTE | 2023-01-24 23:51 | NUR ---
RN notes Took morphine at 1999. Scanned morphine but forgot to save it. Charge nurse Rita, RN is informed and notify. Gave morphine at 1999.
[2023-01-25] MEDS: MORPHINE SULFATE INJ 4 MG/ML DISP.SYRIN IV PRN ×5 (00:04→17:33)
--- NOTE | 2023-01-25 00:05 | NUR ---
RN notes Pt is screaming and yelling for pain. administered morphine/iv as ordered. safety precautions is maintained. will continue to monitor.
[2023-01-25] MEDS: HYDROCODONE/APAP 5/325MG TABLET PO PRN ×3 (03:07→15:35)
--- NOTE | 2023-01-25 03:09 | NUR ---
RN notes Pt is complaining of L leg pain 7/10 on pain scale. administered norco/1 tab/prn as ordered. safety precautions is maintained. will continue to monitor.
--- NOTE | 2023-01-25 05:04 | NUR ---
RN notes Pt is complaining of pain and agitated easily. Administered morphine as ordered for pain. safety precautions is maintained. will continue to monitor.
--- NOTE | 2023-01-25 06:30 | NUR ---
RN notes Called [facility] Pharmacist regarding morphine administered at 1999. Charge nurse is aware and informed.
--- NOTE | 2023-01-25 06:43 | NUR ---
RN closing notes Pt is resting in bed comfortably. Pt is alert and orientedX4. On room air. No SOB. No S/S of distress noted. Snacks is given and provided. IV site at LFA# 20 is clean, intact and flushes well, SL. Routine meds were given as ordered including pain management. Kept Pt clean, dry and comfortable. Safety precautions is maintained. bed at low position, brakes locked, side rails upX2, hob elevated, walker at the bedside, and call light is within reach. Will endorse to am nurse for CHEY.
[2023-01-25 06:52] LABS: CALCIUM, SERUM 8.5 mg/dL (8.5-10.1); CREATININE 1.1 mg/dL (0.6-1.3)
--- NOTE | 2023-01-25 07:40 | NUR ---
RN OPENING NOTES; RECEIVED PT AWAKE, A/O X4. ON RA WITH NO S/S OF SOB, DENIES PAIN AT THIS TIME. IV ACCESS AT L FA# 20 SL. PT IS AMBULATORY. ALL SAFETY MEASURES IN PLACE, CALL LIGHT AND TABLE WITHIN REACH, WILL CONT WITH PLAN OF CARE.
[2023-01-25] MEDS: ARIPIPRAZOLE 5 MG TABLET PO SCH (08:32)
[2023-01-25] MEDS: GABAPENTIN 400 MG CAPSULE PO SCH ×3 (08:32→16:06)
[2023-01-25] MEDS: PROSOURCE / PROSTAT (PYXIS) 30 ML UDC PO SCH ×4 (08:33→16:08)
[2023-01-25] MEDS: FLUOXETINE HCL 20 MG CAPSULE PO SCH (08:33)
[2023-01-25] MEDS: PANTOPRAZOLE 40 MG TABLET.DR PO SCH (08:33)
[2023-01-25 08:45] VITALS: BP 150/90
[2023-01-25] MEDS: VANCOMYCIN 1 GM in IV D5W 250 ML IV SCH (11:10)
[2023-01-25 17:08] VITALS: BP 152/91
[2023-01-25 18:45] VITALS: BP 153/100
[2023-01-25] MEDS: CLONIDINE HCL 0.1 MG TABLET PO PRN (18:45)
--- NOTE | 2023-01-25 19:00 | NUR ---
RN DC NOTES: PT STABLE FOR DC, ON RA WITH NO SOB AND ACUTE DISTRESS, VITALS WNL. TELEPHONE REPORT GIVEN TO JAILYN SCHAFFER AT [facility]. DC INSTRUCTIONS AND MEDICATION DISCUSSED WITH PATIENT, SIGNED DOCUMENTS. PT REFUSED TO SIGN BELONGINGS LIST BECAUSE HE STATES " HE LOST HIS CELLPHONE AT THE ER". SKIN ISSUES PHOTOGRAPHED AND ATTACHED TO CHART. RN CALLED ER, NO CELL PHONE FOUND, ER STATES WILL CALL PT ONCE FOUND. IV ACCESS AND ID BAND REMOVED. SENT FWW TO PT PER MD ORDER. REPORT GIVEN TO EMT, AMBULANCE IS [facility]. PT LEFT UNIT VIA GURNEY.
== END 2023-01-25 19:00 | DRG 602 ==
LOC: ER 16:43 → MED 20:56
PROVIDERS: ADMIT Nurse Practitioner Acute Care
DX: L03.116 Cellulitis of left lower limb (principal); N17.0 Acute kidney failure with tubular necrosis; M62.82 Rhabdomyolysis; F33.2 Major depressive disorder, recurrent severe without psychotic features; F19.20 Other psychoactive substance dependence, uncomplicated; R45.851 Suicidal ideations; T79.A0XA Compartment syndrome, unspecified, initial encounter; S74.00XA Injury of sciatic nerve at hip and thigh level, unspecified leg, initial encounter; X58.XXXA Exposure to other specified factors, initial encounter; Y92.9 Unspecified place or not applicable; F43.10 Post-traumatic stress disorder, unspecified; F41.9 Anxiety disorder, unspecified; F17.210 Nicotine dependence, cigarettes, uncomplicated; S81.852A Open bite, left lower leg, initial encounter; W54.0XXA Bitten by dog, initial encounter; W34.00XS Accidental discharge from unspecified firearms or gun, sequela; F29 Unspecified psychosis not due to a substance or known physiological condition; Z79.899 Other long term (current) drug therapy; Z59.00 Homelessness unspecified; E86.1 Hypovolemia; E87.6 Hypokalemia; G89.29 Other chronic pain; I10 Essential (primary) hypertension; M21.379 Foot drop, unspecified foot; W19.XXXA Unspecified fall, initial encounter; M54.30 Sciatica, unspecified side; M51.36 Other intervertebral disc degeneration, lumbar region; M25.78 Osteophyte, vertebrae
CPT/HCPCS: 36415; 71045-TC; 72148-TC; 73590-TC; 73700-TC; 73721-TC; 76770-TC; 80048-TC; 80053-TC; 80076-TC; 80202-TC; 81001; 82550-TC; 82553; 82570-TC; 83605-TC; 83735-TC; 83880; 84100-TC; 84443-TC; 84484-TC; 85025-TC; 87040-TC; 87081-TC; 93926-TC; 93970-TC; 97116-TC; 97530-TC; A4223; G0378; J1885; J2270; J3370; J7030; J7060

== ENCOUNTER 2023-01-28 11:03 | Emergency (ER) | payer BC ==
[~2023-01-28] VITALS: Ht 185.4 cm; Wt 83.9 kg
[~2023-01-28 11:03] MED LIST changes: +BUPR8TAB4 SL; +FLUO40CA8 PO; +GABA800T11 PO; +LORA-259 PO; +PRAZ2CAP2 PO
[2023-01-28] MEDS ORDERED: ACETAMINOPHEN 325 MG TABLET ONE (12:39)
[2023-01-28] MEDS ORDERED: ACETAMINOPHEN 325 MG TABLET PO ONE (13:00)
--- NOTE | 2023-01-28 14:31 | NUR ---
Patient discharged to home in stable condition. Written and verbal after care instructions given. Patient verbalizes understanding of instruction. Patient will go back to [facility] as per patient. will set up transportation
[2023-01-28 14:35] VITALS: BP 128/71
== END 2023-01-28 14:36 ==
LOC: ER 11:20
DX: S70.02XA Contusion of left hip, initial encounter (principal); F17.200 Nicotine dependence, unspecified, uncomplicated; Z79.899 Other long term (current) drug therapy; W19.XXXA Unspecified fall, initial encounter; Y93.89 Activity, other specified; Y92.89 Other specified places as the place of occurrence of the external cause; Y99.8 Other external cause status
CPT/HCPCS: 73502